=== PATIENT | male | born 1990 | race African-American/Black ===

== ENCOUNTER 2017-04-15 07:29 | Emergency (ER) | payer MEDICAID, OTHER ==
[~2017-04-15] VITALS: Ht 175.3 cm; Wt 70.0 kg
[2017-04-15] MEDS ORDERED: IBUPROFEN 600MG TABLET PO ONE (09:00)
[2017-04-15 10:05] VITALS: BP 122/76
== END 2017-04-15 11:19 | disposition home or self-care (01) ==
LOC: ER 08:05
DX: S92.911A Unspecified fracture of right toe(s), initial encounter for closed fracture (principal); F17.200 Nicotine dependence, unspecified, uncomplicated; W01.0XXA Fall on same level from slipping, tripping and stumbling without subsequent striking against object, initial encounter; Y93.89 Activity, other specified; Y99.8 Other external cause status; Y92.89 Other specified places as the place of occurrence of the external cause
CPT/HCPCS: 73630; 99284; Z7610